=== PATIENT | female | born 1950 | race Caucasian/White ===

== ENCOUNTER → 2023-09-04 | Outpatient (CLI) | payer MEDICARE, SELFPAY ==
--- NOTE | 2023-09-04 13:15 | MRI_ITS ---
INDICATION: RT ASYMMETRIC HEARING LOSS, EXAMINATION: MRI - MR Attn IACs and/or Temporal Bones WO/W Contrast TECHNIQUE: MRI examination of brain obtained with standard protocol including multiplanar multiecho imaging. Pre and Postcontrast imaging obtained. IV Contrast Dosage and Agent: 20 mL Clariscan COMPARISON: None. FINDINGS: HEMISPHERES, CEREBELLUM AND BRAINSTEM: 1. The cerebral parenchyma, ventricular system, subarachnoid spaces have normal configuration and density. There is a normal gyral pattern. There is normal wang/white differentiation. No midline shift.. 2. Chronic microvascular deep white matter changes are present. No evidence fluid restriction. 3. No intraparenchymal mass, hemorrhage, or acute territorial infarct. 4. The cerebellum, brainstem, basilar and suprasellar cisterns have normal appearance. No Chiari malformation. 5. There is abnormal appearance of the RIGHT 7th and 8th cranial nerve complex with diffuse ovoid enlargement with diffuse contrast enhancement extending into the IAC from the level of the RIGHT lateral naeem and extends the level of the fundus of the IAC. This measures approximately 18 mm in length and 7 mm in width. This does contact the lateral aspect naeem without evidence of vasogenic edema. No evidence of enlargement of the IAC. No distinct dural tail identified. 6. Normal appearance of the membranous labyrinth bilaterally. Normal appearance of the LEFT IAC and LEFT 7th and 8th cranial nerve complex. PITUITARY: Infundibulum and pituitary have normal configuration. Midline structures appear normal. CSF SPACES: Appropriate for age. No hydrocephalus. Basal cisterns are patent. VESSELS: 1. There are normal flow voids noted in the great vessels at the skull base 2. Normal appearance of the visualized dural sinuses. ORBITS AND PARANASAL SINUSES: 1. Both globes, extraocular muscles, optic nerves and retrobulbar fat appear unremarkable. 2. Moderate mucosal thickening present within the RIGHT maxillary antrum. BONY ELEMENTS: Bony elements of the cranial vault, facial skeleton and skull base have normal appearance. SCALP AND SOFT TISSUES: Normal appearance of the soft tissues of the scalp and the visualized face OTHER: None MRI/Brain W/WO Contrast IMPRESSION: 1. Elongated intracanalicular RIGHT IAC mass measuring approximately 7 x 18 mm in dimension. This extends into the RIGHT IAC to the level of the fundus. This does contact the lateral aspect of the medulla. No vasogenic edema, dural tail, or destructive bony changes. 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 An intracanalicular facial nerve schwannoma versus meningioma are felt less likely. 2. Normal appearance the LEFT 7th and 8th nerve complex and LEFT ICA. Normal appearance of the membranous labyrinth bilaterally. 3. No intraparenchymal mass, hemorrhage, or acute territorial infarct. 4. There are moderate chronic microvascular deep white matter changes are present. Electronically Signed: Lino Mckeon MD at 23:17 EDT ,
[2023-09-04 13:56] LABS: CREATININE FINGERSTICK < 0.9 mg/dL (0.55-1.02); EGFR FINGERSTICK > 60.0000 mL/min (>60)
== END | disposition home or self-care (01) ==
PROVIDERS: PCP Family Medicine; Referring Provider Otolaryngology; Visit Provider Otolaryngology
DX: H91.91 Unspecified hearing loss, right ear (principal)
CPT/HCPCS: 70553; A9575